=== PATIENT | female | born 1995 | race Caucasian/White ===

== ENCOUNTER 2018-08-25 16:28 | Inpatient (IN) ==
[2018-08-25 17:58] LABS: Basophils # (auto) 0.02 K/uL (0-0.2); Basophils % (auto) 0.2 %; Eosinophils % (auto) 1.2 %; Hematocrit (blood only) 42.1 % (37-47); Hemoglobin 14.5 g/dL (12.0-16.0); Immature Granulocytes # (auto) 0.01 K/uL (0.00-0.02); Immature Granulocytes % (auto) 0.1 %; Lymphocytes # (auto) 1.89 K/uL (1.2-3.4); Lymphocytes % (auto) 21.9 %; Mean Corpuscular Hgb Conc 34.4 g/dL (32-36); Mean Corpuscular Volume 92.5 fL (80-100); Mean Platelet Volume 9.7 fL (7.4-10.4); Monocytes # (auto) 0.72 K/uL (0.11-0.59); Monocytes % (auto) 8.4 %; Neutrophils # (auto) 5.88 K/uL (1.4-6.5); Neutrophils % (auto) 68.2 %; Platelet Count 169 K/uL (130-400); RDW Coefficient of Variation 12.9 % (11.5-14.5); RDW Standard Deviation 43.6 fL (36.4-46.3); Red Blood Count 4.55 M/uL (4.2-5.4); White Blood Count 8.62 K/uL (4.8-10.8)
[2018-08-25 18:30] LABS: Albumin Level 4.2 gm/dl (3.4-5.0); BUN Creatinine Ratio 9.9 (10-20); Calcium 9.1 mg/dl (8.5-10.1); Creatinine Clr Calc Pharmacy 91.5 ml/min; Est GFR (African American) 126.1; Est GFR (Non-African American) 108.8; Potassium 3.4 mmol/L (3.5-5.1)
[2018-08-25 18:35] LABS: Acetaminophen < 2 ug/ml (10-30); Salicylate < 1.7 mg/dl (2.8-20)
[2018-08-25 18:41] LABS: Albumin Globulin Ratio 1.2 (0.9-2); Bilirubin,Total 0.6 mg/dl (0.2-1); Globulin 3.6 gm/dl (2.5-4.0); Total Protein 7.8 gm/dl (6.4-8.2)
[2018-08-25] MEDS ORDERED: POTASSIUM CHLORIDE 20 MEQ TABCR PO STA (18:43)
[2018-08-25 19:26] LABS: Pregnancy Test, Urine Negative (Negative)
[2018-08-25 19:28] LABS: Appearance Urine Cloudy (Clear); Bacteria Urine Automated Negative (Negative); Bilirubin Urine Negative (Negative); Blood Urine Negative (Negative); Cast Urine Automated 0 /lpf (0-5); Color Urine Yellow; Glucose Urine UA Negative (Negative); Ketones Urine 1+ (Negative); Leukocyte Esterase Urine Negative (Negative); Nitrite Urine Negative (Negative); Protein Urine Negative (Negative); Specific Gravity Urine 1.011 (1.000-1.030); Urobilinogen Urine Negative (Negative); pH Urine 8.5 (4.5-7.5)
[2018-08-25 20:04] LABS: Amphetamines+Metham, Urine Neg (Neg); Barbiturates, Urine Neg (Neg); Benzodiazepine, Urine Neg (Neg); Cocaine, Urine Neg (Neg); MDMA (Ecstacy), Urine Neg (Neg); Methadone, Urine Neg (Neg); Opiate, Urine Neg (Neg); Phencyclidine, Urine Neg (Neg)
--- NOTE | 2018-08-25 20:18 | Emergency Department Note ---
Entered by Magnolia Carbajal acting as a scribe for History of Present Illness General Chief complaint: Mental Health Evaluation Stated complaint: SUICIDAL THOUGHTS Time Seen by Provider: 08/25/18 16:40 Source: patient History of Present Illness Onset (ago): unknown (this morning) Location: left and right (generalized) Pain Consistency: + constant Maximum Pain Intensity: 0 Quality: + other (SI) Associated symptoms: + denies other symptoms The patient is a 23 year old female who presents to the Emergency Room with complaints of increased suicidal thoughts that stared this morning. The patient states [facility] sent the patient to the ED. She states she is not taking any medications and has no past medical history. She reports she is currently going for her pHd. The patient states she does not want me to speak with her parents about her visit. Home Medications Home Medications Medication Instructions Recorded Confirmed Type No Known Home Medications 08/25/18 08/25/18 History Allergies Allergy/AdvReac Type Severity Reaction Status Date / Time No Known Allergies Allergy Unverified 08/25/18 17:39 Past Med/Surg History Medical History No significant medical problems Social History Preferred Language: [place] Communication Ability: Effective Visual Merchandising Associate Required: No Beliefs That Will Affect Care: None Feels Safe at Home: Yes Smoking Status: Never smoker Review of Systems See HPI for pertinent positives & negatives. and A total of 10 systems reviewed and were otherwise negative Physical Exam Vital Signs Vital Signs - 24 hr 08/25/18 16:35 08/25/18 18:29 Temperature 36.5 C Temperature Source Oral Sepsis Recent Fever Within 48 Hours No Sepsis New/Unexplained Change in Mental Status No Sepsis Action Taken by Nursing No Action Required Pulse Rate 95 H Pulse Rate [Finger] 90 Respiratory Rate 20 20 Blood Pressure 119/68 Blood Pressure [Left Arm] 119/67 Blood Pressure Mean 85 Blood Pressure Mean [Left Arm] 84 Pulse Oximetry 99 97 Oxygen Delivery Method Room Air Room Air GENERAL: Awake, alert, well-appearing, in no acute distress HENT: Normocephalic, atraumatic. Oropharynx unremarkable. EYES: Normal conjunctiva. Sclera non-icteric. NECK: Supple. No nuchal rigidity. FROM. No JVD. RESPIRATORY: Clear to auscultation. CARDIAC: Regular rate, normal rhythm. Extremities warm and well perfused. Pulses equal. ABDOMEN: Soft, non-distended. No tenderness to palpation. No rebound or guarding. No masses. RECTAL: Deferred. MUSCULOSKELETAL: Chest examination reveals no tenderness. The back is symmetrical on inspection without obvious abnormality. There is no CVA tenderness to palpation. No joint edema. LOWER EXTREMITIES: Calves are equal size bilaterally and non-tender. No edema. No discoloration. NEURO: Normal sensorium. No sensory or motor deficits noted. SKIN: No rash or jaundice noted. Superficial cuts to wrist and upper arm. Course 1649: Past medical records reviewed. The patient was evaluated in room A7. A complete history and physical exam was performed. 2030: Patient is medically cleared and will be evaluated by Fiona New. Administered Medications Discontinued Medications Potassium Chloride (Klor-Con M20) 40 meq PO NOW STA Stop: 08/25/18 18:44 Last Admin: 08/25/18 19:04 Dose: 40 meq Documented by: [id number] Medical Decision Making Differential Diagnosis Etiologies such as mood disorder, infection, hypoglycemia, electrolyte abnormalities, cardiac sources, intracerebral event, toxicologic, neurologic, as well as others were entertained. Medical Records Attestation: I reviewed the patient's medical records. Home Medications Current Medication List: was personally reviewed by me Laboratory Data Attestation: I reviewed the patient's lab results. Result diagrams: 08/25/18 17:44 08/25/18 17:44 Lab Results 08/25/18 08/25/18 08/25/18 Range/Units 17:44 17:44 17:44 WBC 8.62 (4.8-10.8) K/uL RBC 4.55 (4.2-5.4) M/uL Hgb 14.5 (12.0-16.0) g/dL Hct 42.1 (37-47) % MCV 92.5 (80-100) fL MCH 31.9 (25-34) pg MCHC 34.4 (32-36) g/dL RDW Std Deviation 43.6 (36.4-46.3) fL RDW Coeff of Lesly 12.9 (11.5-14.5) % Plt Count 169 (130-400) K/uL MPV 9.7 (7.4-10.4) fL Immature Gran % (Auto) 0.1 % Neut % (Auto) 68.2 % Lymph % (Auto) 21.9 % Cecil % (Auto) 8.4 % Eos % (Auto) 1.2 % Baso % (Auto) 0.2 % Immature Gran # (Auto) 0.01 (0.00-0.02) K/uL Neut # (Auto) 5.88 (1.4-6.5) K/uL Lymph # (Auto) 1.89 (1.2-3.4) K/uL Cecil # (Auto) 0.72 H (0.11-0.59) K/uL Eos # (Auto) 0.10 (0-0.5) K/uL Baso # (Auto) 0.02 (0-0.2) K/uL Sodium 137 (136-145) mmol/L Potassium 3.4 L (3.5-5.1) mmol/L Chloride 105 (98-107) mmol/L Carbon Dioxide 25 (21-32) mmol/L Anion Gap 7.0 (3-11) BUN 8 (7-18) mg/dl Creatinine 0.77 (0.6-1.2) mg/dl Est Cr Clr Drug Dosing 91.5 ml/min Est GFR ( Amer) 126.1 Est GFR (Non-Af Amer) 108.8 BUN/Creatinine Ratio 9.9 L (10-20) Glucose 78 (70-99) mg/dl Calcium 9.1 (8.5-10.1) mg/dl Total Bilirubin 0.6 (0.2-1) mg/dl AST 17 (15-37) U/L ALT 17 (12-78) U/L Alkaline Phosphatase 63 (45-117) U/L Total Protein 7.8 (6.4-8.2) gm/dl Albumin 4.2 (3.4-5.0) gm/dl Globulin 3.6 (2.5-4.0) gm/dl Albumin/Globulin Ratio 1.2 (0.9-2) TSH 1.540 (0.300-4.500) uIu/ml Urine Color Urine Appearance (Clear) Urine pH (4.5-7.5) Ur Specific [place] (1.000-1.030) Urine Protein (Negative) Urine Glucose (UA) (Negative) Urine Ketones (Negative) Urine Blood (Negative) Urine Nitrite (Negative) Urine Bilirubin (Negative) Urine Urobilinogen (Negative) Ur Leukocyte Esterase (Negative) Urine WBC (Auto) (0-5) /hpf Urine RBC (Auto) (0-4) /hpf U Hyaline Cast (Auto) (0-5) /lpf U Epithel Cells (Auto) (0-5) /lpf Urine Bacteria (Auto) (Negative) Urine Test (Negative) Salicylates < 1.7 L (2.8-20) mg/dl Urine Opiates Screen (Neg) Ur Methadone, Qual (Neg) Acetaminophen < 2 L (10-30) ug/ml Urine Barbiturates (Neg) Ur Phencyclidine (PCP) (Neg) U Amphetamin/Meth Scrn (Neg) MDMA (Ecstasy) Screen (Neg) U Benzodiazepines Scrn (Neg) Ur Cocaine Metabolite (Neg) U Marijuana (THC) Screen (Neg) Ethyl Alcohol mg/dL (0-3) mg/dl 08/25/18 08/25/18 08/25/18 Range/Units 17:44 18:50 18:50 WBC (4.8-10.8) K/uL RBC (4.2-5.4) M/uL Hgb (12.0-16.0) g/dL Hct (37-47) % MCV (80-100) fL MCH (25-34) pg MCHC (32-36) g/dL RDW Std Deviation (36.4-46.3) fL RDW Coeff of Lesly (11.5-14.5) % Plt Count (130-400) K/uL MPV (7.4-10.4) fL Immature Gran % (Auto) % Neut % (Auto) % Lymph % (Auto) % Cecil % (Auto) % Eos % (Auto) % Baso % (Auto) % Immature Gran # (Auto) (0.00-0.02) K/uL Neut # (Auto) (1.4-6.5) K/uL Lymph # (Auto) (1.2-3.4) K/uL Cecil # (Auto) (0.11-0.59) K/uL Eos # (Auto) (0-0.5) K/uL Baso # (Auto) (0-0.2) K/uL Sodium (136-145) mmol/L Potassium (3.5-5.1) mmol/L Chloride (98-107) mmol/L Carbon Dioxide (21-32) mmol/L Anion Gap (3-11) BUN (7-18) mg/dl Creatinine (0.6-1.2) mg/dl Est Cr Clr Drug Dosing ml/min Est GFR ( Amer) Est GFR (Non-Af Amer) BUN/Creatinine Ratio (10-20) Glucose (70-99) mg/dl Calcium (8.5-10.1) mg/dl Total Bilirubin (0.2-1) mg/dl AST (15-37) U/L ALT (12-78) U/L Alkaline Phosphatase (45-117) U/L Total Protein (6.4-8.2) gm/dl Albumin (3.4-5.0) gm/dl Globulin (2.5-4.0) gm/dl Albumin/Globulin Ratio (0.9-2) TSH (0.300-4.500) uIu/ml Urine Color Urine Appearance (Clear) Urine pH (4.5-7.5) Ur Specific [place] (1.000-1.030) Urine Protein (Negative) Urine Glucose (UA) (Negative) Urine Ketones (Negative) Urine Blood (Negative) Urine Nitrite (Negative) Urine Bilirubin (Negative) Urine Urobilinogen (Negative) Ur Leukocyte Esterase (Negative) Urine WBC (Auto) (0-5) /hpf Urine RBC (Auto) (0-4) /hpf U Hyaline Cast (Auto) (0-5) /lpf U Epithel Cells (Auto) (0-5) /lpf Urine Bacteria (Auto) (Negative) Urine Test Negative (Negative) Salicylates (2.8-20) mg/dl Urine Opiates Screen Neg (Neg) Ur Methadone, Qual Neg (Neg) Acetaminophen (10-30) ug/ml Urine Barbiturates Neg (Neg) Ur Phencyclidine (PCP) Neg (Neg) U Amphetamin/Meth Scrn Neg (Neg) MDMA (Ecstasy) Screen Neg (Neg) U Benzodiazepines Scrn Neg (Neg) Ur Cocaine Metabolite Neg (Neg) U Marijuana (THC) Screen Neg (Neg) Ethyl Alcohol mg/dL < 3.0 (0-3) mg/dl 05/15/19 Range/Units 18:50 WBC (4.8-10.8) K/uL RBC (4.2-5.4) M/uL Hgb (12.0-16.0) g/dL Hct (37-47) % MCV (80-100) fL MCH (25-34) pg MCHC (32-36) g/dL RDW Std Deviation (36.4-46.3) fL RDW Coeff of Lesly (11.5-14.5) % Plt Count (130-400) K/uL MPV (7.4-10.4) fL Immature Gran % (Auto) % Neut % (Auto) % Lymph % (Auto) % Cecil % (Auto) % Eos % (Auto) % Baso % (Auto) % Immature Gran # (Auto) (0.00-0.02) K/uL Neut # (Auto) (1.4-6.5) K/uL Lymph # (Auto) (1.2-3.4) K/uL Cecil # (Auto) (0.11-0.59) K/uL Eos # (Auto) (0-0.5) K/uL Baso # (Auto) (0-0.2) K/uL Sodium (136-145) mmol/L Potassium (3.5-5.1) mmol/L Chloride (98-107) mmol/L Carbon Dioxide (21-32) mmol/L Anion Gap (3-11) BUN (7-18) mg/dl Creatinine (0.6-1.2) mg/dl Est Cr Clr Drug Dosing ml/min Est GFR ( Amer) Est GFR (Non-Af Amer) BUN/Creatinine Ratio (10-20) Glucose (70-99) mg/dl Calcium (8.5-10.1) mg/dl Total Bilirubin (0.2-1) mg/dl AST (15-37) U/L ALT (12-78) U/L Alkaline Phosphatase (45-117) U/L Total Protein (6.4-8.2) gm/dl Albumin (3.4-5.0) gm/dl Globulin (2.5-4.0) gm/dl Albumin/Globulin Ratio (0.9-2) TSH (0.300-4.500) uIu/ml Urine Color Yellow Urine Appearance Cloudy A (Clear) Urine pH 8.5 H (4.5-7.5) Ur Specific [place] 1.011 (1.000-1.030) Urine Protein Negative (Negative) Urine Glucose (UA) Negative (Negative) Urine Ketones 1+ H (Negative) Urine Blood Negative (Negative) Urine Nitrite Negative (Negative) Urine Bilirubin Negative (Negative) Urine Urobilinogen Negative (Negative) Ur Leukocyte Esterase Negative (Negative) Urine WBC (Auto) 1-5 (0-5) /hpf Urine RBC (Auto) 5-10 H (0-4) /hpf U Hyaline Cast (Auto) 0 (0-5) /lpf U Epithel Cells (Auto) 10-20 H (0-5) /lpf Urine Bacteria (Auto) Negative (Negative) Urine Test (Negative) Salicylates (2.8-20) mg/dl Urine Opiates Screen (Neg) Ur Methadone, Qual (Neg) Acetaminophen (10-30) ug/ml Urine Barbiturates (Neg) Ur Phencyclidine (PCP) (Neg) U Amphetamin/Meth Scrn (Neg) MDMA (Ecstasy) Screen (Neg) U Benzodiazepines Scrn (Neg) Ur Cocaine Metabolite (Neg) U Marijuana (THC) Screen (Neg) Ethyl Alcohol mg/dL (0-3) mg/dl Blood Pressure Blood Pressure Findings: Normal blood pressure Blood Pressure Disposition: did not require urgent referral MDM Narrative This is a 23-year-old female who presents emergency department over concerns of C suicidal ideation. Patient has superficial cuts to her left upper arm. None of these need to be sutured. She does not have any medical history. She is medically cleared by me. She is afebrile and not tachycardic. She is also not has a normal CBC normal renal profile. Her urinalysis is clear. Based on these findings she was independently evaluated by case management and was subsequently admitted to 3 . Impression & Plan Mood disorder Discharge Plan Visit Data *Final* Discharge Date/Time: 08/25/18 21:23 Chief Complaint: Mental Health Evaluation Stated Complaint: SUICIDAL THOUGHTS ED Provider: Marquise Davalos Discharge Problem: Mood disorder Patient Disposition: Admitted As Inpatient Discharge Instructions Interventions: ED Discharge Assessment Last Done: 08/25/18 21:23 The scribe's documentation has been prepared under my direction and personally reviewed by me in its entirety. I confirm that the note above accurately reflects all work, treatment, procedures, and medical decision making performed by me.
[2018-08-25] MEDS ORDERED: ALUMINUM/MAGNESIUM SUSP 30 ML UDC PO PRN (20:41)
[2018-08-25] MEDS ORDERED: MAGNESIUM HYDROXIDE SUSP 30 ML UDC PO PRN (20:41)
[2018-08-25] MEDS ORDERED: ACETAMINOPHEN 325 MG TAB PO PRN (20:41)
[2018-08-25] MEDS ORDERED: SODIUM CHLORIDE 0.65% NA SOLN 45 ML (OCEAN) PRN (20:41)
[2018-08-25] MEDS ORDERED: BISMUTH SUBSALICYLATE PER ML OMNICELL CHARGE PO PRN (20:41)
--- NOTE | 2018-08-26 10:05 | History & Physical ---
Date of Service August 26, 2018 Impression / Recommendations Impression 23-year-old female admitted voluntarily for inpatient psychiatric treatment due to reports of worsening depressive symptoms and increased suicidal thoughts in the last 2-3 weeks. Significant stressors include: Finals week, significant time spent completing lab duties, several reportedly unsuccessful experiments, risk of losing funding for her program, and over all difficulty adjusting to the University. Patient's depressive symptoms have been especially persistent since May, and frequently change with situations. Differential diagnoses include: adjustment disorder with mixed depressed mood and anxiety (however, mood changes began prior to the reported risk of losing funding), major depressive disorder, dysthymic disorder, or other unspecified depressive disorder. Her anxiety symptoms and observed behavior suggest sufficient criteria for social anxiety disorder. Reviewed recommendations for outpatient psychotherapy, and for initiation of an antidepressant medication. Risks and benefits of SSRIs were discussed, and patient was provided with information on sertraline, fluoxetine, and escitalopram at her request. Followed up with patient later in the day; patient stating she would like additional time to look over her options. She was agreeable to reviewing in the morning and starting her medication choice at that time. Pt will be expected to attend group and recreational therapies during her admission. At this time, she is not interested in informing her family of her admission. Will encourage contact with outpatient supports, and patient admits to not having close connections in this area. At this time, inpatient psychiatric treatment is medically necessary due to her reports of worsening depressive symptoms, increased suicidality, very limited outpatient supports in the area, and the fact that she is not established with any outpatient providers. Several of her stressors related to work and her academics will likely be ongoing after admission, therefore we recommend a robust aftercare and safety plan to help her cope with these situations. Patient is considered to be at high risk of harm to self if she is discharged prematurely. Dr. Merary Das was directly involved in review and discussion of the patient's case and participated in medical decision making regarding treatment recommendations. (1) Suicidal ideation: 08/26 - Admitted to a locked inpatient behavioral health unit, on q15 minute safety checks - Encourage medication initiation/adjustments as indicated - Encourage participation in group and recreational therapies - Gather collateral information from outpatient providers - Suggest family meeting to involve outpatient supports in safety planning - Arrange appropriate aftercare (2) Depression: 08/26 - Depression, NOS: Differential includes - adjustment disorder with mixed depressed mood and anxiety, major depressive disorder, dysthymic disorder, or other mood disorder - Reviewed recommendation for initiation of an SSRI, providing patient education information - Pt is agreeable to review, but would like additional time - planning to start medication in the morning if she remains agreeable Depression Type: unspecified Qualified Code(s): F32.9 - Major depressive disorder, single episode, unspecified (3) Social anxiety disorder: 08/26 - Reported symptoms and level of anxiety meet criteria for social anxiety disorder - SSRI as above - Assist with development of healthy and effective coping strategies (4) Self-injurious behavior: 08/26 - Several superficial cuts to left upper arm and left wrist - none requiring suturing in the ED. Keep areas clean and dry, can order antibiotic ointment if necessary, observe healing process during admission - Assist patient with the development of healthy and effective coping strategies to discourage giving in to self-harm urges Inventory Assets Strengths: intelligence, willingness for medications + therapy Needs: effective coping strategies, medications to target anxiety and depression, increased outpatient supports Risk Factors Assessment Male: No : Yes Do You Have Access To A Gun?: No Health Problems: No Mental Health Diagnoses: Yes Substance Use Disorders: No Previous Attempt: No Family History of Suicide: No Previous Psychiatric Hospitalization: No Hopelessness: Yes Smoker: No Protective Factors Assessment Islam Beliefs: Yes : No Responsible for Young Children: No Employed: Yes Stable Relationships: No Supportive Family: Yes (but living in [place] ) Psychiatric History Identifying Data KESHIA DOMINGUEZ is a 23-year-old F who currently lives in [place], currently working on her Ph.D. Pt has no previously reported psychiatric history, and was admitted on 08/25/18 20:41 on a 201 voluntary commitment for suicidal thoughts. Pt was referred by [facility] for mental health evaluation. Information is gathered from ED documentation and the patient herself, and is considered to be reliable. Chief Complaint "...[45 second pause]...I had a meeting at [facility]...for suicidal thoughts...and self-harm." History of Present Illness Keshia Dominguez (Katie) is a 23-year-old female admitted voluntarily for inpatient psychiatric treatment. 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 She was brought to the ED by police after referral from [facility]. Patient had presented for a scheduled therapy appointment, and had disclosed suicidal thoughts and self-harm behavior. Patient was assessed in the emergency department and inpatient psychiatric treatment was ultimately recommended. 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 Patient admits to this provider that she is concerned that she is not living up to others' expectations of her. 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 Patient admits the desire to end her life has been present for the last 2-3 weeks. She reports a specific plan - "severing a major artery was a consideration." Patient states that 08/22/2018 was a particularly difficult day; however, "I was able to push myself to go to work this week, and make sure I got to that appointment at [facility] yesterday." Patient admits to significant difficulty with interpersonal relationships. She states she is always had difficulty interacting with others in social settings, and has trouble making friends. Patient states "communication is hard for me, it is extravagantly exhausting." The patient describes herself as "reclusive." Patient reports a great deal of anxiety when it comes to academic presentations, interacting with others and lab, and simply being the presence of other individuals. Patient states, "humans are social creatures by nature and that social interaction is so difficult for me." Patient states that there are times that she avoids leaving her apartment, states she figured out when the grocery store is most quiet, and generally her only social interaction is "Mass on Sundays." Patient does not report a clear history of panic attacks in the past. She does report depressive symptoms of low mood, reporting more bad days than good days during the week. She admits to daily crying spells generally lasting 2 hours, increased desire to retreat to bed, decreased appetite, low energy, anhedonia, difficulty concentrating, hopelessness, and recent suicidal ideation. Patient states, "part of me feels that the major chore to keep living, but the other part of me wants to fight to stay and keep going." Patient denies any previous medication trials to target her anxiety or mood. She does admit to a brief period of counseling just prior to graduation from her undergraduate studies, stating the primary focus of this counseling was on her self-harm behavior which she reports was infrequent at the time. Patient does admit that she would be interested in considering medications, and is willing to pursue outpatient therapy as well. Pt denies HI, A/V hallucinations, paranoia, florencio/hypomania, other symptoms more suggestive of a bipolar presentation, OCD, PTSD, eating disorder, and other specific psychiatric symptoms. Past Psychiatric History Previous Psych History: Previous psychiatric treatment includes only a brief per iod of counseling in spring 2017 to address self-harm which was infrequent at the time Current Psychiatric Diagnosis: Denies Outpatient Services: None presently Previous Psych Admissions: None Do You Have Access To A Gun?: No History of Previous Suicide Attempt: No Describe Attempts in the Past: Wrote note and tried to slit wrist on Thursday Past Medication Trials: None Past Head Trauma/Neuro History History of Concussion/Seizure: No Allergies Allergy/AdvReac Type Severity Reaction Status Date / Time No Known Allergies Allergy Unverified 08/25/18 17:39 Home Medications Home Medications Medication Instructions Recorded Confirmed Type No Known Home Medications 08/25/18 08/25/18 History Family History Family History of: Depression and Anxiety Family Mental Health History Comment: Siblings and mother Alcohol History Hx of Alcohol Use Over the Past 12 Months: No AUDIT Total Score: 0 Smoking Use Have You Smoked or Used Tobacco Products in the Last 30 Days: No Smoking Status: Never smoker Substance History Hx of Prescription Med Misuse Over the Past 12 Months: No Hx of Over the Counter Med Misuse Over the Past 12 Months: No Hx of Inhalent Misuse Over the Past 12 Months: No Hx of Organic Substance Use Over the Past 12 Months: No Hx of Illegal Substances/Street Drug Use Over Past 12 Months: No Problems as a Result of Past Substance Use: None Identified Personal History Living Arrangements: Apartment (Alone) Childhood: Patient reports she was born in [place] and spent 15 years growing up in [place]. Patient states she came from a supportive safe home, raised by both parents. She has 1 brother 5 years older, and is 1 of a set of triplets -2 additional brothers. Patient states that all got along well she believes she had a normal childhood. 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, actively tutors on the side) Marital Status: Single Beliefs That Will Affect Care: None Current Legal Problems: No Hx Traumatic Life Events: No Patient History Medical History No significant medical problems Social History Preferred Language: Grenadian Communication Ability: Effective Production Hardener Required: No Beliefs That Will Affect Care: None Feels Safe at Home: Yes Smoking Status: Never smoker Review of Systems Review of Systems: Constitutional: reports fatigue for the past 1-2 weeks Cardiovascular: denied Respiratory: denied Gastrointestinal: reports decreased appetite Neurological: reports difficulty concentrating and occasional lightheadedness Psychiatric: denies symptoms other than stated above Total of at least 10 systems reviewed, pertinent positives as above and in HPI. Physical Exam Psychiatric: Orientation: alert, oriented x 3 and cooperative (Though very hesitant and shy) Apperance: appropriately groomed and appeared stated age Thin-appearing female appearing to be very anxious, but in no acute distress. Wearing a long turtle-neck, ankle-length skirt, and glasses. Hair neatly pulled back in a long braid. Level of hygiene and hydration appears to be adequate. Eye Contact: + poor eye contact Patient frequently avoids eye contact, actually spending most of the interview looking away from this provider with her eyes closed Motor Behavior: steady gait and station and no abnormal motor movements Appearing tense and constricted Speech is calculated and hesitant, extremely soft tone Affect: + depressed affect, + anxious affect (Highly) and + tearful affect Mood: + depressed mood and + anxious mood "Up and down, it varies with situations" Thought Process: goal directed thought process and clear/coherent thought process Thought Content: reality based without delusions Suicidal Thoughts: + reports suicidal thoughts, + reports suicidal plan (Reports consideration of "severing the major artery") and + reports suicidal intent Homicidal Thoughts: denies homicidal thoughts Hallucinations: no auditory hallucinations and no visual hallucinations Cognition: recent memory grossly intact, remote memory grossly intact, attention grossly intact and language grossly intact Estimated Intelligence: consistent with education level and + above average estimated intelligence Insight: + fair insight Judgement: + limited judgement Vital Signs (Past 24 Hours): Last Vital Signs Temp 36.8 C 08/26/18 06:00 Pulse 88 08/26/18 06:00 Resp 16 08/26/18 06:00 BP 107/68 08/26/18 06:00 Pulse Ox 97 08/25/18 18:29 Exam Statement: A physical exam was performed in the ER prior to admission to the unit by Dr. Marquise Davalos MD. I accept that physical as correct/medical clearance for the inpatient physical exam. Results & Data Laboratory Results Laboratory Results - last 24 hr 08/25/18 08/25/18 08/25/18 17:44 17:44 17:44 WBC 8.62 RBC 4.55 Hgb 14.5 Hct 42.1 MCV 92.5 MCH 31.9 MCHC 34.4 RDW Std Deviation 43.6 RDW Coeff of Lesly 12.9 Plt Count 169 MPV 9.7 Immature Gran % (Auto) 0.1 Neut % (Auto) 68.2 Lymph % (Auto) 21.9 [place] % (Auto) 8.4 Eos % (Auto) 1.2 Baso % (Auto) 0.2 Immature Gran # (Auto) 0.01 Neut # (Auto) 5.88 Lymph # (Auto) 1.89 [place] # (Auto) 0.72 H Eos # (Auto) 0.10 Baso # (Auto) 0.02 Sodium 137 Potassium 3.4 L Chloride 105 Carbon Dioxide 25 Anion Gap 7.0 BUN 8 Creatinine 0.77 Est Cr Clr Drug Dosing 91.5 Est GFR ( Amer) 126.1 Est GFR (Non-Af Amer) 108.8 BUN/Creatinine Ratio 9.9 L Glucose 78 Calcium 9.1 Total Bilirubin 0.6 AST 17 ALT 17 Alkaline Phosphatase 63 Total Protein 7.8 Albumin 4.2 Globulin 3.6 Albumin/Globulin Ratio 1.2 TSH 1.540 Urine Color Urine Appearance Urine pH Ur Specific [place] Urine Protein Urine Glucose (UA) Urine Ketones Urine Blood Urine Nitrite Urine Bilirubin Urine Urobilinogen Ur Leukocyte Esterase Urine WBC (Auto) Urine RBC (Auto) U Hyaline Cast (Auto) U Epithel Cells (Auto) Urine Bacteria (Auto) Urine Test Salicylates < 1.7 L Urine Opiates Screen Ur Methadone, Qual Acetaminophen < 2 L Urine Barbiturates Ur Phencyclidine (PCP) U Amphetamin/Meth Scrn MDMA (Ecstasy) Screen U Benzodiazepines Scrn Ur Cocaine Metabolite U Marijuana (THC) Screen Ethyl Alcohol mg/dL 08/25/18 08/25/18 08/25/18 17:44 18:50 18:50 WBC RBC Hgb Hct MCV MCH MCHC RDW Std Deviation RDW Coeff of Lesly Plt Count MPV Immature Gran % (Auto) Neut % (Auto) Lymph % (Auto) [place] % (Auto) Eos % (Auto) Baso % (Auto) Immature Gran # (Auto) Neut # (Auto) Lymph # (Auto) [place] # (Auto) Eos # (Auto) Baso # (Auto) Sodium Potassium Chloride Carbon Dioxide Anion Gap BUN Creatinine Est Cr Clr Drug Dosing Est GFR ( Amer) Est GFR (Non-Af Amer) BUN/Creatinine Ratio Glucose Calcium Total Bilirubin AST ALT Alkaline Phosphatase Total Protein Albumin Globulin Albumin/Globulin Ratio TSH Urine Color Urine Appearance Urine pH Ur Specific [place] Urine Protein Urine Glucose (UA) Urine Ketones Urine Blood Urine Nitrite Urine Bilirubin Urine Urobilinogen Ur Leukocyte Esterase Urine WBC (Auto) Urine RBC (Auto) U Hyaline Cast (Auto) U Epithel Cells (Auto) Urine Bacteria (Auto) Urine Test Negative Salicylates Urine Opiates Screen Neg Ur Methadone, Qual Neg Acetaminophen Urine Barbiturates Neg Ur Phencyclidine (PCP) Neg U Amphetamin/Meth Scrn Neg MDMA (Ecstasy) Screen Neg U Benzodiazepines Scrn Neg Ur Cocaine Metabolite Neg U Marijuana (THC) Screen Neg Ethyl Alcohol mg/dL < 3.0 08/25/18 18:50 WBC RBC Hgb Hct MCV MCH MCHC RDW Std Deviation RDW Coeff of Lesly Plt Count MPV Immature Gran % (Auto) Neut % (Auto) Lymph % (Auto) [place] % (Auto) Eos % (Auto) Baso % (Auto) Immature Gran # (Auto) Neut # (Auto) Lymph # (Auto) [place] # (Auto) Eos # (Auto) Baso # (Auto) Sodium Potassium Chloride Carbon Dioxide Anion Gap BUN Creatinine Est Cr Clr Drug Dosing Est GFR ( Amer) Est GFR (Non-Af Amer) BUN/Creatinine Ratio Glucose Calcium Total Bilirubin AST ALT Alkaline Phosphatase Total Protein Albumin Globulin Albumin/Globulin Ratio TSH Urine Color Yellow Urine Appearance Cloudy A Urine pH 8.5 H Ur Specific [place] 1.011 Urine Protein Negative Urine Glucose (UA) Negative Urine Ketones 1+ H Urine Blood Negative Urine Nitrite Negative Urine Bilirubin Negative Urine Urobilinogen Negative Ur Leukocyte Esterase Negative Urine WBC (Auto) 1-5 Urine RBC (Auto) 5-10 H U Hyaline Cast (Auto) 0 U Epithel Cells (Auto) 10-20 H Urine Bacteria (Auto) Negative Urine Test Salicylates Urine Opiates Screen Ur Methadone, Qual Acetaminophen Urine Barbiturates Ur Phencyclidine (PCP) U Amphetamin/Meth Scrn MDMA (Ecstasy) Screen U Benzodiazepines Scrn Ur Cocaine Metabolite U Marijuana (THC) Screen Ethyl Alcohol mg/dL Current Inpatient Medications Current Inpatient Medications: Current Inpatient Medications Acetaminophen (Tylenol) 650 mg PO Q4H PRN PRN Reason: Headache or Minor Fever Stop: 09/24/18 20:40 Al Hydrox/Mg Hydrox/Simethicone (Maalox) 30 ml PO Q4H PRN PRN Reason: GI Upset Stop: 09/24/18 20:40 Bismuth Subsalicylate (Kaopectate) 15 ml PO PRN PRN PRN Reason: Loose Stool Stop: 09/24/18 20:40 Hydroxyzine HCl (Vistaril) 50 mg PO HSZ PRN PRN Reason: Insomnia Stop: 09/24/18 20:40 Hydroxyzine HCl (Vistaril) 25 mg PO Q4H PRN PRN Reason: Anxiety Stop: 09/24/18 20:40 Magnesium Hydroxide (Milk Of Magnesia) 30 ml PO DAILY PRN PRN Reason: Constipation Stop: 09/24/18 20:40 Sodium Chloride ([place] Nasal) 1 - 2 sprays NA PRN PRN PRN Reason: Nasal Dryness/Congestion Stop: 09/24/18 20:40 CPT Code CPT Code Initial Hospital Care: [id number]
--- NOTE | 2018-08-27 12:02 | Psychiatric Progress Note ---
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 Also, the patient tends to be quite reserved to the point of being diffident at baseline (per the patient). Whether a function of her depression, or part of the patient's personality structure, she fr equently makes self depreciating comments and seems to internalize failures that may better be attributed to other people. For example, she blames her difficulty "properly reading" her advisor for the fact that he seems not to be available much of the time and has apparently offered little in the way of academic, let alone emotional, support. I am also struck by the degree to which the patient's tendency to be highly analytical crosses into the realm of obsessive thinking and a dedication to being overly concerned with rules, lists, and a sense of order. Within the context of suicidal intent, which the patient says reached its height last Thursday, and intent that persisted into work-week, the patient felt compelled to go to work and be on time on Thursday, even under of the above referenced circumstances, because, she puts it, "that is what is expected. I am supposed to keep working, so I did." She also indicates that she has used self cutting as a way of managing obsessive thinking and ruminations, and often becomes intellectually "paralyzed" by a tendency to over think and over analyze even routine decisions. 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 However, at this point, it seems clear that her tendency to over think and over analyze and over plan is significantly interfering with her ability to function. For that reason, I am recommending a medication that is known to help with depression, anxiety and obsessive thinking, namely sertraline. The patient is below ideal body weight and I will recommend we start at a low dose and titrate fairly quickly, as tolerated. (1) Suicidal ideation: 08/26 - Admitted to a locked inpatient behavioral health unit, on q15 minute safety checks - Encourage medication initiation/adjustments as indicated - Encourage participation in group and recreational therapies - Gather collateral information from outpatient providers - Suggest family meeting to involve outpatient supports in safety planning - Arrange appropriate aftercare 08/27 -The patient tells me that she continues to have continued thoughts of suicide, but today does not feel that she has any suicidal intentat least in the hospital. She recognizes that she is facing many of the same stressors that helps precipitated the current admission when she leaves the hospital, and she also worries that these stressors may have become greater because she has not been able to do research while hospitalized. -We will again sertraline 25 mg today, and increase as tolerated to 50 mg tomorrow, and then titrate further as tolerated. -The patient is being encouraged to work assiduously on a safety plan. (2) Depression: 08/26 - Depression, NOS: Differential includes - adjustment disorder with mixed depressed mood and anxiety, major depressive disorder, dysthymic disorder, or other mood disorder - Reviewed recommendation for initiation of an SSRI, providing patient education information - Pt is agreeable to review, but would like additional time - planning to start medication in the morning if she remains agreeable 08/27 -I believe the patient's correct diagnosis is major depressive disorder, severe, recurrent, without psychotic features. She has had at least one other episode of major depression, and certainly at this point meets criteria for major depression. -After reading about him analyzing the various material risks and anticipated benefits of various antidepressant medications she developed a rank ordered list of selective serotonin reuptake inhibitors that she would prefer to take. Sertraline was her second choice, but I convince the patient that I would recommend sertraline because of its demonstrated benefit for depression, anxiety, social phobia, and obsessive compulsive disorder. While I am not convinced the patient meets criteria for OCD, she certainly has a pattern of obsessively thinking and analyzing, to the degree that it interferes with her functioning in a number of spheres. -The plan is to begin sertraline 25 mg today, and increase to 50 mg tomorrow and then titrate further as tolerated. - (3) Social anxiety disorder: 08/26 - Reported symptoms and level of anxiety meet criteria for social anxiety disorder - SSRI as above - Assist with development of healthy and effective coping strategies. 08/27 -At least currently, the patient is almost painfully shy. Certainly, this reality may interfere with her ability to develop an adequate support network here in the community, and she seems reluctant to "burden" her family with her problems, even though she describes her family as being "close" and's "supportive." -We will be encouraging the patient to engage in the milieu, and work in group therapy and individual therapy to practice social interactions and better learning the value of obtaining support and encouragement for others. -We are beginning sertraline, as above. Hopefully this will also assist the patient in her effort to overcome social phobia. (4) Self-injurious behavior: 08/26 - Several superficial cuts to left upper arm and left wrist - none requiring suturing in the ED. Keep areas clean and dry, can order antibiotic ointment if necessary, observe healing process during admission - Assist patient with the development of healthy and effective coping strategies to discourage giving in to self-harm urges. 08/27 -Today, the patient indicates that she has significant shame associated with her intentional self-injurious behaviors (superficial self cutting). She acknowledges that self cutting helps block her obsessive thinking and relieves tension, but she also notes that this only afford her temporary relief and, furthermore, is contrary to her anglican beliefs as a Latter Day. Within this context, the patient says that she is committed to not engage in behavior, at least for the foreseeable future. Inventory Assets Strengths: intelligence, willingness for medications + therapy Needs: effective coping strategies, medications to target anxiety and depression, increased outpatient supports Risk Factors Assessment Male: No : Yes Do You Have Access To A Gun?: No Health Problems: No Mental Health Diagnoses: Yes Substance Use Disorders: No Previous Attempt: No Family History of Suicide: No Previous Psychiatric Hospitalization: No Hopelessness: Yes Smoker: No Protective Factors Assessment Restoration Beliefs: Yes : No Responsible for Young Children: No Employed: Yes Stable Relationships: No Supportive Family: Yes (but living in [place] ) Interval History Chief Complaint "Depressed. Discouraged." Review of Systems Sleep Information Total Hours of Sleep: 6.75 Meal Information Percent Meal Consumed - Breakfast: 100 Percent Meal Consumed - Lunch: 75 Percent Meal Consumed - Dinner: 100 Subjective Subjective Patient was seen & assessed and interval progress reviewed with Treatment Team. I met individually with the patient in order to assess her current mental status, evaluate her response to treatment, make any necessary changes in the patient's treatment regimen, and address issues and concerns that may arise. At my request, the patient initially focused on the stressors that may have precipitated the admission. 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 She tells me that she has no publishable data because none of the research is complete enough to publish either positive or negative findings. Within this context, the patient frequently blames herself for the situation. For example, when I asked her who in the program is available to provide her with support, she says, "I have an advisor. I think the problem is that I have not been able to read him properly, and I have not done a good job of communicating to him what I need." (On further questioning, the patient mentions, in passing, that the advisor is often out of the office and unavailable.) Her primary interest is in teaching, but she notes that in order to obtain an academic appointment in her field that she will need to have worked in research and be published. The patient also notes that she is working long hours, has little time for leisure activities, feels tired and anergic "almost all the time," and has been finding herself "dragging through the day" on a daily basis. She has trouble identifying when she first became aware that she was depressed, but feels that her depressed mood has been worsening over the course of the past 8 or 9 months. 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 She acknowledges that she had both suicidal plans and suicidal intent prior to the admission. Specifically, she tells me in some detail how she might use the "technologically inferior" gas stove in her apartment to asphyxiate herself, and when I pointed out that that could harm neighbors in her apartment building, she explained that she had "already thought about that. My apartment is not immediately adjacent to anyone else's apartment." The patient also says that she has been thinking of exsanguinating by cutting an artery, but notes that she realizes that large arteries are usually very deep and she is not sure that she would have the ability to "go that deep." Other thoughts are of drowning herself. She had not disclosed these thoughts to anyone, including her family, until she w evaluated in the emergency room immediately prior to the admission. She reports that there have been other times in her life where she has considered suicide, but and none of these other instances have the thoughts been as strong and is closely coupled with actual suicidal intent. Further, there is a history of intentional self-injurious behaviors. The patient reports that she periodically cuts herself on the arm (pointing to her left arm) with a pocket knife to relieve tension. The patient tells me that she considers herself to be a fairly strictly adherent Latter Day, and intentional self injur of any sort is contrary to her anglican and moral beliefs, and within this context she is struggling to avoid acting on the impulses. There is also clear that the patient is socially isolated. She tells me that she has lived in [place] since last November (2017) and has no friends. She also tells me that her family is "close," but that she has not been sharing her psychiatric symptoms with her family and has not talked to any great extent about her situational difficulties. We had discussed antidepressant treatment options with the patient yesterday, and she tells me that she poured through data sets concerning the various antidepressant medications and had ranked her preferences based on her findings. I explained that because responses to medication and different people can be quite different, a general review of potential side effects is not necessarily any guarantee that side effects will or will not present themselves, based on genetic makeup and other factors. Today, the patient told me that she would agree to try the medication that I recommend, and I recommended sertraline and explained that I think that it would help with her anxiety, her depression, and her tendency to be excessively and obsessively focused. In addition to depressed mood and suicidal thoughts, the patient endorses anergia, anhedonia, apathy, hypersomnia, as well as feelings of hopelessness, helplessness and worthlessness. Physical Exam Psychiatric Orientation: oriented x 3 Apperance: appropriately groomed Eye Contact: + poor eye contact Motor Behavior: + tremor The patient rocks in her chair and engages in manual self soothing behaviors. The patient's speech is quite soft, but spontaneous. She speaks at length and response to questions. Affect: + depressed affect Mood: + depressed mood Thought Process: linear/logical thought process The patient's thought process these tend to be marked by a tendency to be over inclusive and highly analytical Thought Content: + preoccupation and reality based without delusions The patient reports ongoing suicidal thoughts, but without any current plan or i ntent, at least during the hospitalization. Homicidal Thoughts: denies homicidal thoughts Hallucinations: no auditory hallucinations Cognition: recent memory grossly intact, remote memory grossly intact, attention grossly intact and language grossly intact Estimated Intelligence: + above average estimated intelligence Insight: + fair insight Judgement: + fair judgement Vital Signs (Past 24 Hours) Last Vital Signs Temp 36.7 C 08/27/18 06:00 Pulse 105 H 08/27/18 06:00 Resp 16 08/27/18 06:00 BP 105/72 08/27/18 06:00 Pulse Ox 97 08/25/18 18:29 Results & Data Current Inpatient Medications Current Inpatient Medications: Current Inpatient Medications Acetaminophen (Tylenol) 650 mg PO Q4H PRN PRN Reason: Headache or Minor Fever Stop: 09/24/18 20:40 Al Hydrox/Mg Hydrox/Simethicone (Maalox) 30 ml PO Q4H PRN PRN Reason: GI Upset Stop: 09/24/18 20:40 Bismuth Subsalicylate (Kaopectate) 15 ml PO PRN PRN PRN Reason: Loose Stool Stop: 09/24/18 20:40 Hydroxyzine HCl (Vistaril) 50 mg PO HSZ PRN PRN Reason: Insomnia Stop: 09/24/18 20:40 Hydroxyzine HCl (Vistaril) 25 mg PO Q4H PRN PRN Reason: Anxiety Stop: 09/24/18 20:40 Magnesium Hydroxide (Milk Of Magnesia) 30 ml PO DAILY PRN PRN Reason: Constipation Stop: 09/24/18 20:40 Sodium Chloride (Craven Nasal) 1 - 2 sprays NA PRN PRN PRN Reason: Nasal Dryness/Congestion Stop: 09/24/18 20:40 Post Discharge Appointments Primary Care Physician Name Of Family Doctor: [facility] Provider Appointment Comment: [facility] Therapist Name of Therapist: BRYAN Therapist's Date of Therapist Appointment: 09/01/18 Time of Therapist Appointment: 3:00 p.m. Therapy Appointment Comment: [address] [place] [address] Plumbing Instructor Name of Plumbing Instructor: [facility] Phone Number for Plumbing Instructor: [phone] Case Management Appointment Comment: [address] Contact Information Discharge Discharge Address: [address] [place] [address], [place] [address], [place], [place] [address] CPT Code CPT Code 28743 (1) Depression Depression Type: unspecified Qualified Code(s): F32.9 - Major depressive disorder, single episode, unspecified
[2018-08-27] MEDS: SERTRALINE HCL 50 MG TABLET PO SCH (12:47)
[2018-08-28] MEDS: SERTRALINE HCL 50 MG TABLET PO SCH (09:49)
--- NOTE | 2018-08-28 14:30 | Psychiatric Progress Note ---
Date of Service August 28, 2018 Impression / Recommendations Impression Patient remains severely anxious with obsessive-compulsive and avoidant traits. She is preoccupied with notions of duty, responsibility, rules, and order. She may be reluctant to accept treatment at some level secondary to the perceived risk of failing to meet her duties. She is describing slight interval improvement but remains at high risk for self-harm if prematurely discharged. (1) Suicidal ideation: 08/26 - Admitted to a locked inpatient behavioral health unit, on q15 minute safety checks - Encourage medication initiation/adjustments as indicated - Encourage participation in group and recreational therapies - Gather collateral information from outpatient providers - Suggest family meeting to involve outpatient supports in safety planning - Arrange appropriate aftercare 08/27 -The patient tells me that she continues to have continued thoughts of suicide, but today does not feel that she has any suicidal intentat least in the hospital. She recognizes that she is facing many of the same stressors that helps precipitated the current admission when she leaves the hospital, and she also worries that these stressors may have become greater because she has not been able to do research while hospitalized. -We will again sertraline 25 mg today, and increase as tolerated to 50 mg tomorrow, and then titrate further as tolerated. -The patient is being encouraged to work assiduously on a safety plan. (2) Depression: 08/26 - Depression, NOS: Differential includes - adjustment disorder with mixed depressed mood and anxiety, major depressive disorder, dysthymic disorder, or other mood disorder - Reviewed recommendation for initiation of an SSRI, providing patient education information - Pt is agreeable to review, but would like additional time - planning to start medication in the morning if she remains agreeable 08/27 -I believe the patient's correct diagnosis is major depressive disorder, se tahmina, recurrent, without psychotic features. She has had at least one other episode of major depression, and certainly at this point meets criteria for major depression. -After reading about him analyzing the various material risks and anticipated benefits of various antidepressant medications she developed a rank ordered list of selective serotonin reuptake inhibitors that she would prefer to take. Sertraline was her second choice, but I convince the patient that I would recommend sertraline because of its demonstrated benefit for depression, anxiety, social phobia, and obsessive compulsive disorder. While I am not convinced the patient meets criteria for OCD, she certainly has a pattern of obsessively thinking and analyzing, to the degree that it interferes with her functioning in a number of spheres. -The plan is to begin sertraline 25 mg today, and increase to 50 mg tomorrow and then titrate further as tolerated. 08/28 - zoloft titration to continue as tolerated. will order vitals for pm as tachy this AM - pt was unwilling to start buspar (in effort to achieve some anxiolysis while waiting for ssri titration to become therapeutic) but was willing to try a single dose. as such, will order buspar 2.5mg po now x1 (3) Social anxiety disorder: 08/26 - Reported symptoms and level of anxiety meet criteria for social anxiety di sorder - SSRI as above - Assist with development of healthy and effective coping strategies. 08/27 -At least currently, the patient is almost painfully shy. Certainly, this reality may interfere with her ability to develop an adequate support network here in the community, and she seems reluctant to "burden" her family with her problems, even though she describes her family as being "close" and's "supportive." -We will be encouraging the patient to engage in the milieu, and work in group therapy and individual therapy to practice social interactions and better learning the value of obtaining support and encouragement for others. -We are beginning sertraline, as above. Hopefully this will also assist the patient in her effort to overcome social phobia. 08/28 - clearly this is not simply social anxiety. social needs actually appear low and likely more avoidant or perhaps even a little schizoid with severe obsessive compulsive traits evident. (4) Self-injurious behavior: 08/26 - Several superficial cuts to left upper arm and left wrist - none requiring suturing in the ED. Keep areas clean and dry, can order antibiotic ointment if necessary, observe healing process during admission - Assist patient with the development of healthy and effective coping strategies to discourage giving in to self-harm urges. 08/27 -Today, the patient indicates that she has significant shame associated with her intentional self-injurious behaviors (superficial self cutting). She acknowledges that self cutting helps block her obsessive thinking and relieves tension, but she also notes that this only afford her temporary relief and, furthermore, is contrary to her orthodoxy beliefs as a Alevism. Within this context, the patient says that she is committed to not engage in behavior, at least for the foreseeable future. Inventory Assets Strengths: intelligence, willingness for medications + therapy Needs: effective coping strategies, medications to target anxiety and depression, increased outpatient supports Risk Factors Assessment Male: No : Yes Do You Have Access To A Gun?: No Health Problems: No Mental Health Diagnoses: Yes Substance Use Disorders: No Previous Attempt: No Family History of Suicide: No Previous Psychiatric Hospitalization: No Hopelessness: Yes Smoker: No Protective Factors Assessment Yarsanism Beliefs: Yes : No Responsible for Young Children: No Employed: Yes Stable Relationships: No Supportive Family: Yes (but living in [place] ) Interval History Chief Complaint "It comes down to justice". Review of Systems Sleep Information Total Hours of Sleep: 7.5 Meal Information Percent Meal Consumed - Breakfast: 100 Percent Meal Consumed - Lunch: 60 Percent Meal Consumed - Dinner: 100 Subjective Subjective Patient was seen & assessed and interval progress reviewed with Treatment Team. Patient was started on Zoloft yesterday and reported mood as 5 out of 10 last evening and described as being out in the milieu a little more in the last 24 hours. Patient is an interesting interview. She presents as highly anxious. Quickly obsessive-compulsive personality traits, perfectionistic drives, high onus of responsibility comes through. This appears internally driven. She describes a lot of "should" thinking and seems quick to devalue herself when she is unable to meet goals. She acknowledges the catastrophic suicidal impulses that she has had and describes "justice" as result of perceived failing to meet her responsibility for eliel regarding her spiritual ideology. In exploring this she identifies strong introversion and likely elements of avoidance in addition to predilection towards goal-directed pragmatic thinking impact social connectedness. Regardless of origin, she perceives this as an area of personal failure and possibly magnified when she feels less efficacious and her goal- directed pursuits. Her self history is laden with overly detailed interwoven data points. She acknowledges emotional fatigue associated with the responsibility. She historically has utilized cutting as a way to drown out the mental chatter. She reports modest improvement in hopelessness in the last 24 hours now feeling more "frustrated." Physical Exam Psychiatric Orientation: oriented x 3 Apperance: + did not appear stated age (appears older than stated age. con servetively dressed and groomed) Eye Contact: + poor eye contact Motor Behavior: steady gait and station (posture is retreating) speech is overproductive but soft Affect: + depressed affect and + anxious affect "frustrated" Thought Process: + circumstantial thought process Thought Content: + preoccupation, + obsessions (obsessive) and + guilt Suicidal Thoughts: + reports suicidal thoughts Hallucinations: no auditory hallucinations and no visual hallucinations Cognition: recent memory grossly intact Estimated Intelligence: + above average estimated intelligence Insight: + limited insight Judgement: + limited judgement Vital Signs (Past 24 Hours) Last Vital Signs Temp 36.6 C 08/28/18 06:00 Pulse 120 H 08/28/18 06:00 Resp 16 08/28/18 06:00 BP 115/75 08/28/18 06:00 Pulse Ox 97 08/25/18 18:29 Results & Data Current Inpatient Medications Current Inpatient Medications: Current Inpatient Medications Acetaminophen (Tylenol) 650 mg PO Q4H PRN PRN Reason: Headache or Minor Fever Stop: 09/24/18 20:40 Al Hydrox/Mg Hydrox/Simethicone (Maalox) 30 ml PO Q4H PRN PRN Reason: GI Upset Stop: 09/24/18 20:40 Bismuth Subsalicylate (Kaopectate) 15 ml PO PRN PRN PRN Reason: Loose Stool Stop: 09/24/18 20:40 Buspirone HCl (Buspar) 2.5 mg PO NOW ONE Stop: 08/28/18 14:11 Hydroxyzine HCl (Vistaril) 50 mg PO HSZ PRN PRN Reason: Insomnia Stop: 09/24/18 20:40 Hydroxyzine HCl (Vistaril) 25 mg PO Q4H PRN PRN Reason: Anxiety Stop: 09/24/18 20:40 Magnesium Hydroxide (Milk Of Magnesia) 30 ml PO DAILY PRN PRN Reason: Constipation Stop: 09/24/18 20:40 Sertraline HCl (Zoloft) 25 mg PO QAM SHARRON Stop: 09/26/18 12:14 Last Admin: 08/28/18 09:49 Dose: 25 mg Documented by: Sodium Chloride ([place] Nasal) 1 - 2 sprays NA PRN PRN PRN Reason: Nasal Dryness/Congestion Stop: 09/24/18 20:40 Post Discharge Appointments Primary Care Physician Name Of Family Doctor: Camila Provider Appointment Comment: [facility] Therapist Name of Therapist: BRYAN Therapist's Date of Therapist Appointment: 09/01/18 Time of Therapist Appointment: 3:00 p.m. Therapy Appointment Comment: [address] [place] [address] [employer] Pump Operator Name of [employer]ia Pump Operator: [facility] Phone Number for [employer] Pump Operator: [phone] Case Management Appointment Comment: [facility] Contact Information Discharge Discharge Address: [address] [place] [address] CPT Code CPT Code 95539 (1) Depression Depression Type: unspecified Qualified Code(s): F32.9 - Major depressive disorder, single episode, unspecified
[2018-08-29] MEDS: SERTRALINE HCL 50 MG TABLET PO SCH (07:53)
--- NOTE | 2018-08-29 10:27 | Psychiatric Progress Note ---
Date of Service August 29, 2018 Impression / Recommendations Impression While anxiety remains severe, her affect is indeed a little brighter today. Yet unable to contract for safety outside of the hospital and requires continued treatment for provision of safety. (1) Suicidal ideation: 08/26 - Admitted to a locked inpatient behavioral health unit, on q15 minute safety checks - Encourage medication initiation/adjustments as indicated - Encourage participation in group and recreational therapies - Gather collateral information from outpatient providers - Suggest family meeting to involve outpatient supports in safety planning - Arrange appropriate aftercare 08/27 -The patient tells me that she continues to have continued thoughts of suicide, but today does not feel that she has any suicidal intentat least in the hospital. She recognizes that she is facing many of the same stressors that helps precipitated the current admission when she leaves the hospital, and she also worries that these stressors may have become greater because she has not been able to do research while hospitalized. -We will again sertraline 25 mg today, and increase as tolerated to 50 mg tomorrow, and then titrate further as tolerated. -The patient is being encouraged to work assiduously on a safety plan. 08/29 - Suicidal ideation appears unresolved (2) Depression: 08/26 - Depression, NOS: Differential includes - adjustment disorder with mixed depressed mood and anxiety, major depressive disorder, dysthymic disorder, or other mood disorder - Reviewed recommendation for initiation of an SSRI, providing patient education information - Pt is agreeable to review, but would like additional time - planning to start medication in the morning if she remains agreeable 08/27 -I believe the patient's correct diagnosis is major depressive disorder, severe, recurrent, without psychotic features. She has had at least one other episode of major depression, and certainly at this point meets criteria for major depression. -After reading about him analyzing the various material risks and anticipated benefits of various antidepressant medications she developed a rank ordered list of selective serotonin reuptake inhibitors that she would prefer to take. Sertraline was her second choice, but I convince the patient that I would recommend sertraline because of its demonstrated benefit for depression, anxiety, social phobia, and obsessive compulsive disorder. While I am not convinced the patient meets criteria for OCD, she certainly has a pattern of obsessively thinking and analyzing, to the degree that it interferes with her functioning in a number of spheres. -The plan is to begin sertraline 25 mg today, and increase to 50 mg tomorrow and then titrate further as tolerated. 08/28 - zoloft titration to continue as tolerated - pt was unwilling to start buspar (in effort to achieve some anxiolysis while waiting for ssri titration to become therapeutic) but was willing to try a single dose. as such, will order buspar 2.5mg po now x1 08/28 -We will increase Zoloft to 50 mg daily Thursday -We will increase vitals frequency to twice daily for a few days secondary to complaint of heart racing which appears worse in the mornings when she is hypotensive and tachycardic. Vitals yesterday afternoon normal. Denies cardiac history. Cannot rule out SSRI side effect (3) Social anxiety disorder: 08/26 - Reported symptoms and level of anxiety meet criteria for social anxiety disorder - SSRI as above - Assist with development of healthy and effective coping strategies. 08/27 -At least currently, the patient is almost painfully shy. Certainly, this reality may interfere with her ability to develop an adequate support network here in the community, and she seems reluctant to "burden" her family with her problems, even though she describes her family as being "close" and's "supportive." -We will be encouraging the patient to engage in the milieu, and work in group therapy and individual therapy to practice social interactions and better learning the value of obtaining support and encouragement for others. -We are beginning sertraline, as above. Hopefully this will also assist the patient in her effort to overcome social phobia. 08/28 - clearly this is not simply social anxiety. social needs actually appear low and likely more avoidant or perhaps even a little schizoid with severe obsessive compulsive traits evident. 08/29 -Increase Zoloft as above -Reviewed with patient that she does have access to as needed hydroxyzine for insomnia overnight -Patient unwilling to retry BuSpar secondary to sedation with first dose (4) Self-injurious behavior: 08/26 - Several superficial cuts to left upper arm and left wrist - none requiring suturing in the ED. Keep areas clean and dry, can order antibiotic ointment if necessary, observe healing process during admission - Assist patient with the development of healthy and effective coping strategies to discourage giving in to self-harm urges. 08/27 -Today, the patient indicates that she has significant shame associated with her intentional self-injurious behaviors (superficial self cutting). She acknowledges that self cutting helps block her obsessive thinking and relieves tension, but she also notes that this only afford her temporary relief and, furthermore, is contrary to her samaritan beliefs as a Jainism. Within this context, the patient says that she is committed to not engage in behavior, at least for the foreseeable future. Inventory Assets Strengths: intelligence, willingness for medications + therapy Needs: effective coping strategies, medications to target anxiety and depression, increased outpatient supports Risk Factors Assessment Male: No : Yes Do You Have Access To A Gun?: No Health Problems: No Mental Health Diagnoses: Yes Substance Use Disorders: No Previous Attempt: No Family History of Suicide: No Previous Psychiatric Hospitalization: No Hopelessness: Yes Smoker: No Protective Factors Assessment Jew Beliefs: Yes : No Responsible for Young Children: No Employed: Yes Stable Relationships: No Supportive Family: Yes (but living in [place] ) Interval History Chief Complaint "It made me feel foggy". Review of Systems Notes denies CP or SOB. Sleep Information Total Hours of Sleep: 6.75 Meal Information Percent Meal Consumed - Breakfast: 100 Percent Meal Consumed - Lunch: 60 Percent Meal Consumed - Dinner: 100 Subjective Subjective Patient was seen & assessed and interval progress reviewed with Treatment Team. Per staff patient complained of some waking overnight and early waking this morning. BuSpar trial with a single 2.5 mg dose yesterday seemingly associated with drowsiness. On interview patient reports several hours of feeling more foggy and sleepy. Interestingly she does describe "thinking less" following BuSpar dose. She remains highly anxious but appears slightly more relaxed on interview this morning. She describes her mood as "primarily foggy I guess." Reviewed low blood pressure and tachycardia again this morning. Interestingly her pulse was normal yesterday afternoon which may be related to time of day or possibly diminished anxiety following BuSpar administration. She remains unable to contract for safety outside of the hospital. Physical Exam Psychiatric Orientation: oriented x 3 and cooperative Apperance: appropriately groomed Eye Contact: + poor eye contact (but a little more direct this AM) Motor Behavior: no abnormal motor movements Speech: + abnormal rate/rhythm/volume of speech (remains soft but spontaneous) Affect: + anxious affect "foggy" Thought Process: + circumstantial thought process Thought Content: + preoccupation Suicidal Thoughts: denies suicidal plan and denies suicidal intent; + reports suicidal thoughts Cognition: recent memory grossly intact Estimated Intelligence: + above average estimated intelligence Insight: + limited insight Judgement: + limited judgement Vital Signs (Past 24 Hours) Last Vital Signs Temp 36.7 C 08/29/18 06:00 Pulse 125 H 08/29/18 06:00 Resp 16 08/29/18 06:00 BP 76/48 L 08/29/18 06:00 Pulse Ox 97 08/25/18 18:29 Cardiovascular Rate/Rhythm: regular rate, regular rhythm (radial pulse on palp 80 bmp and regular) and + tachycardic Results & Data Current Inpatient Medications Current Inpatient Medications: Current Inpatient Medications Acetaminophen (Tylenol) 650 mg PO Q4H PRN PRN Reason: Headache or Minor Fever Stop: 09/24/18 20:40 Al Hydrox/Mg Hydrox/Simethicone (Maalox) 30 ml PO Q4H PRN PRN Reason: GI Upset Stop: 09/24/18 20:40 Bismuth Subsalicylate (Kaopectate) 15 ml PO PRN PRN PRN Reason: Loose Stool Stop: 09/24/18 20:40 Hydroxyzine HCl (Vistaril) 50 mg PO HSZ PRN PRN Reason: Insomnia Stop: 09/24/18 20:40 Hydroxyzine HCl (Vistaril) 25 mg PO Q4H PRN PRN Reason: Anxiety Stop: 09/24/18 20:40 Magnesium Hydroxide (Milk Of Magnesia) 30 ml PO DAILY PRN PRN Reason: Constipation Stop: 09/24/18 20:40 Sertraline HCl (Zoloft) 50 mg PO QAM SHARRON Stop: 09/29/18 08:59 Sodium Chloride ([place] Nasal) 1 - 2 sprays NA PRN PRN PRN Reason: Nasal Dryness/Congestion Stop: 09/24/18 20:40 Post Discharge Appointments Primary Care Physician Name Of Family Doctor: Camila Provider Appointment Comment: [facility] Therapist Name of Therapist: BRYAN Therapist's Date of Therapist Appointment: 09/01/18 Time of Therapist Appointment: 3:00 p.m. Therapy Appointment Comment: [address] [place] [address] Mixer Operator Tablets Name of Mixer Operator Tablets: [facility] Phone Number for Mixer Operator Tablets: [phone] Case Management Appointment Comment: [address] [facility] Contact Information Discharge Discharge Address: [address] [place] [address], [place] [address], [place] [address] CPT Code CPT Code 58069 (1) Depression Depression Type: unspecified Qualified Code(s): F32.9 - Major depressive disorder, single episode, unspecified
[2018-08-30] MEDS: SERTRALINE HCL 50 MG TABLET PO SCH (08:25)
--- NOTE | 2018-08-30 13:58 | Psychiatric Progress Note ---
Date of Service August 30, 2018 Impression / Recommendations Impression Patient reports improvement in mood, and anxiety is predominantly focused towards transitioning back to school and anticipating meetings with her student success advisor. Patient's affect is brighter and she has been more interactive with peers on the unit. She does report recent resolution of suicidal thoughts; however, self-harm desire is ongoing. Given patient's high risk for harm to self if discharged prematurely, it would be beneficial to continue to observe mood and ensure that these improvements are consistent prior to discharge. (1) Suicidal ideation: 08/26 - Admitted to a locked inpatient behavioral health unit, on q15 minute safety checks - Encourage medication initiation/adjustments as indicated - Encourage participation in group and recreational therapies - Gather collateral information from outpatient providers - Suggest family meeting to involve outpatient supports in safety planning - Arrange appropriate aftercare 08/27 -The patient tells me that she continues to have continued thoughts of suicide, but today does not feel that she has any suicidal intentat least in the hospital. She recognizes that she is facing many of the same stressors that helps precipitated the current admission when she leaves the hospital, and she also worries that these stressors may have become greater because she has not been able to do research while hospitalized. -We will again sertraline 25 mg today, and increase as tolerated to 50 mg tomorrow, and then titrate further as tolerated. -The patient is being encouraged to work assiduously on a safety plan. 08/29 - Suicidal ideation appears unresolved 08/30 - Pt reports resolution of SI (2) Depression: 08/26 - Depression, NOS: Differential includes - adjustment disorder with mixed depressed mood and anxiety, major depressive disorder, dysthymic disorder, or other mood disorder - Reviewed recommendation for initiation of an SSRI, providing patient e ducation information - Pt is agreeable to review, but would like additional time - planning to start medication in the morning if she remains agreeable 08/27 -I believe the patient's correct diagnosis is major depressive disorder, severe, recurrent, without psychotic features. She has had at least one other episode of major depression, and certainly at this point meets criteria for major depression. -After reading about him analyzing the various material risks and anticipated benefits of various antidepressant medications she developed a rank ordered list of selective serotonin reuptake inhibitors that she would prefer to take. Sertraline was her second choice, but I convince the patient that I would recommend sertraline because of its demonstrated benefit for depression, anxiety, social phobia, and obsessive compulsive disorder. While I am not convinced the patient meets criteria for OCD, she certainly has a pattern of obsessively thinking and analyzing, to the degree that it interferes with her functioning in a number of spheres. -The plan is to begin sertraline 25 mg today, and increase to 50 mg tomorrow and then titrate further as tolerated. 08/28 - zoloft titration to continue as tolerated - pt was unwilling to start buspar (in effort to achieve some anxiolysis while waiting for ssri titration to become therapeutic) but was willing to try a single dose. as such, will order buspar 2.5mg po now x1 08/28 -We will increase Zoloft to 50 mg daily Thursday morning -We will increase vitals frequency to twice daily for a few days secondary to complaint of heart racing which appears worse in the mornings when she is hypotensive and tachycardic. Vitals yesterday afternoon normal. Denies cardiac history. Cannot rule out SSRI side effect 08/30 - Continue current medication regimen. Will defer ongoing titration of sertraline to her outpatient prescriber (3) Social anxiety disorder: 08/26 - Reported symptoms and level of anxiety meet criteria for social anxiety disorder - SSRI as above - Assist with development of healthy and effective coping strategies. 08/27 -At least currently, the patient is almost painfully shy. Certainly, this reality may interfere with her ability to develop an adequate support network here in the community, and she seems reluctant to "burden" her family with her problems, even though she describes her family as being "close" and's "supportive." -We will be encouraging the patient to engage in the milieu, and work in group therapy and individual therapy to practice social interactions and better learning the value of obtaining support and encouragement for others. -We are beginning sertraline, as above. Hopefully this will also assist the patient in her effort to overcome social phobia. 08/28 - clearly this is not simply social anxiety. social needs actually appear low and likely more avoidant or perhaps even a little schizoid with severe obsessive compulsive traits evident. 08/29 -Increase Zoloft as above -Reviewed with patient that she does have access to as needed hydroxyzine for insomnia overnight -Patient unwilling to retry BuSpar secondary to sedation with first dose (4) Self-injurious behavior: 08/26 - Several superficial cuts to left upper arm and left wrist - none requiring suturing in the ED. Keep areas clean and dry, can order antibiotic ointment if necessary, observe healing process during admission - Assist patient with the development of healthy and effective coping strategies to discourage giving in to self-harm urges. 08/27 -Today, the patient indicates that she has significant shame associated with her intentional self-injurious behaviors (superficial self cutting). She acknowledges that self cutting helps block her obsessive thinking and relieves tension, but she also notes that this only afford her temporary relief and, furthermore, is contrary to her baptism beliefs as a Mandaeism. Within this context, the patient says that she is committed to not engage in behavior, at least for the foreseeable future. 08/30 - Admits to ongoing urges to self-harm, continues to be receptive to assistance with developing alternative coping strategies Inventory Assets Strengths: intelligence, willingness for medications + therapy Needs: effective coping strategies, medications to target anxiety and depression, increased outpatient supports Risk Factors Assessment Male: No : Yes Do You Have Access To A Gun?: No Health Problems: No Mental Health Diagnoses: Yes Substance Use Disorders: No Previous Attempt: No Family History of Suicide: No Previous Psychiatric Hospitalization: No Hopelessness: Yes Smoker: No Protective Factors Assessment Yazdanism Beliefs: Yes : No Responsible for Young Children: No Employed: Yes Stable Relationships: No Supportive Family: Yes (but living in [place] ) Interval History Identifying Information LARISSA CORDOVA is a 23-year-old F who currently lives in [place], currently working on her Ph.D. Pt has no previously reported psychiatric history, and was admitted on 08/25/18 20:41 on a 201 voluntary commitment for suicidal thoughts. Pt was referred by [facility] for mental health evaluation. Information is gathered from ED documentation and the patient herself, and is considered to be reliable. Chief Complaint "Good. The weekend was good." Review of Systems Notes Constitutional: reports feeling "foggy" though not sedated Cardiovascular: denied Respiratory: denied Gastrointestinal: denied Neurological: denied Psychiatric: denies symptoms other than stated above Total of at least 10 systems reviewed, pertinent positives as above and in HPI. Sleep Information Total Hours of Sleep: 7.5 Meal Information Percent Meal Consumed - Breakfast: 100 Percent Meal Consumed - Lunch: 70 Percent Meal Consumed - Dinner: 100 Subjective Subjective Patient was seen & assessed and interval progress reviewed with Treatment Team. Staff reports the patient was agreeable to calling her parents yesterday, and a phone call turned into a family meeting involving mom, dad, and patient's 2 brothers. Family was supportive and reasonably concerned. Mother had offered to fly into [employer] to assist patient with transition back to school. Patient was seen today to assess progress since admission. Patient states she has been "good." She is agreeable with the plan for her mother to stay with her for a period of time. It was suggested by the mother that the patient come up with a list of things that she needs from her mother, but also things that may be "too much." Patient states she is a little concerned about her mother becoming too involved, but overall is happy to have her support. Patient states she is scheduled for a meeting with her student success advisor tomorrow morning, and will be interested in discharge prior to then if possible. Patient denies ongoing suicidal thoughts stating "I was thinking back through my suicide note, and realized it was no longer true." Patient states this is given her new motivation to continue with her schooling and with life. She does report ongoing urges to self-harm, is able to process with this provider some other coping strategies which may be beneficial for her in the future. Patient denies any other needs or concerns today. Physical Exam Psychiatric Orientation: alert, oriented x 3 and cooperative Apperance: appropriately dressed and appropriately groomed Eye Contact: good eye contact Motor Behavior: steady gait and station and no abnormal motor movements Speech: normal rate/rhythm/volume of speech (Soft tone) Affect: euthymic affect Mood: + anxious mood (Primarily regarding meeting with her student success advisor) "Good." Thought Process: goal directed thought process, linear/logical thought process and clear/coherent thought process Thought Content: reality based without delusions Suicidal Thoughts: denies suicidal thoughts, denies suicidal plan and denies suicidal intent Homicidal Thoughts: denies homicidal thoughts Hallucinations: no auditory hallucinations and no visual hallucinations Cognition: recent memory grossly intact, remote memory grossly intact, attention grossly intact and language grossly intact Estimated Intelligence: consistent with education level Insight: + fair insight Judgement: + fair judgement Vital Signs (Past 24 Hours) Last Vital Signs Temp 36.6 C 08/30/18 06:00 Pulse 105 H 08/30/18 06:00 Resp 16 08/30/18 06:00 BP 107/71 08/30/18 06:00 Pulse Ox 97 08/25/18 18:29 Results & Data Current Inpatient Medications Current Inpatient Medications: Current Inpatient Medications Acetaminophen (Tylenol) 650 mg PO Q4H PRN PRN Reason: Headache or Minor Fever Stop: 09/24/18 20:40 Al Hydrox/Mg Hydrox/Simethicone (Maalox) 30 ml PO Q4H PRN PRN Reason: GI Upset Stop: 09/24/18 20:40 Bismuth Subsalicylate (Kaopectate) 15 ml PO PRN PRN PRN Reason: Loose Stool Stop: 09/24/18 20:40 Hydroxyzine HCl (Vistaril) 50 mg PO HSZ PRN PRN Reason: Insomnia Stop: 09/24/18 20:40 Hydroxyzine HCl (Vistaril) 25 mg PO Q4H PRN PRN Reason: Anxiety Stop: 09/24/18 20:40 Magnesium Hydroxide (Milk Of Magnesia) 30 ml PO DAILY PRN PRN Reason: Constipation Stop: 09/24/18 20:40 Sertraline HCl (Zoloft) 50 mg PO QAM SHARRON Stop: 09/29/18 08:59 Last Admin: 08/30/18 08:25 Dose: 50 mg Documented by: Sodium Chloride (Startup Nasal) 1 - 2 sprays NA PRN PRN PRN Reason: Nasal Dryness/Congestion Stop: 09/24/18 20:40 Post Discharge Appointments Primary Care Physician Name Of Family Doctor: [facility] Provider Appointment Comment: [facility] Therapist Name of Therapist: BRYAN Therapist's Date of Therapist Appointment: 09/01/18 Time of Therapist Appointment: 3:00 p.m. Therapy Appointment Comment: [address] [place] [address] Geotechnical Engineer Name of Geotechnical Engineer: [facility] Phone Number for Geotechnical Engineer: [phone] Case Management Appointment Comment: [address] [place] [address] Contact Information Discharge Discharge Address: [address] [place] [address], [place], [place] [address] CPT Code CPT Code 16770 (1) Depression Depression Type: unspecified Qualified Code(s): F32.9 - Major depressive disorder, single episode, unspecified
[2018-08-31] MEDS: SERTRALINE HCL 50 MG TABLET PO SCH (07:29)
--- NOTE | 2018-08-31 09:30 | Discharge Summary ---
Date of Service August 31, 2018 History of Present Illness Keshia Dominguez (Katie) is a 23-year-old female admitted voluntarily for inpatient psychiatric treatment. 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 She was brought to the ED by police after referral from [facility]. Patient had presented for a scheduled therapy appointment, and had disclosed suicidal thoughts and self-harm behavior. Patient was assessed in the emergency department and inpatient psychiatric treatment was ultimately recommended. 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 Patient admits to this provider that she is concerned that she is not living up to others' expectations of her. 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 Patient admits the desire to end her life has been present for the last 2-3 weeks. She reports a specific plan - "severing a major artery was a consideration." Patient states that 08/22/2018 was a particularly difficult day; however, "I was able to push myself to go to work this week, and make sure I got to that appointment at [facility] yesterday." Patient admits to significant difficulty with interpersonal relationships. She states she is always had difficulty interacting with others in social settings, and has trouble making friends. Patient states "communication is hard for me, it is extravagantly exhausting." The patient describes herself as "reclusive." Patient reports a great deal of anxiety when it comes to academic presentations, interacting with others and lab, and simply being the presence of other individu als. Patient states, "humans are social creatures by nature and that social interaction is so difficult for me." Patient states that there are times that she avoids leaving her apartment, states she figured out when the grocery store is most quiet, and generally her only social interaction is "Mass on Sundays." Patient does not report a clear history of panic attacks in the past. She does report depressive symptoms of low mood, reporting more bad days than good days during the week. She admits to daily crying spells generally lasting 2 hours, increased desire to retreat to bed, decreased appetite, low energy, anhedonia, difficulty concentrating, hopelessness, and recent suicidal ideation. Patient states, "part of me feels that the major chore to keep living, but the other part of me wants to fight to stay and keep going." Patient denies any previous medication trials to target her anxiety or mood. She does admit to a brief period of counseling just prior to graduation from her undergraduate studies, stating the primary focus of this counseling was on her self-harm behavior which she reports was infrequent at the time. Patient does admit that she would be interested in considering medications, and is willing to pursue outpatient therapy as well. Pt denies HI, A/V hallucinations, paranoia, florencio/hypomania, other symptoms more suggestive of a bipolar presentation, OCD, PTSD, eating disorder, and other specific psychiatric symptoms. Physical Exam Psychiatric Orientation: alert, oriented x 3 and cooperative Apperance: appropriately dressed and appropriately groomed Eye Contact: good eye contact Motor Behavior: steady gait and station and no abnormal motor movements Speech: normal rate/rhythm/volume of speech (Soft tone) Affect: + anxious affect (Though lessened from admission) "Okay, a little anxious. It feels good to have a plan." Thought Process: goal directed thought process, linear/logical thought process and clear/coherent thought process Thought Content: reality based without delusions Suicidal Thoughts: denies suicidal thoughts, denies suicidal plan and denies suicidal intent Homicidal Thoughts: denies homicidal thoughts Hallucinations: no auditory hallucinations and no visual hallucinations Cognition: recent memory grossly intact, remote memory grossly intact, attention grossly intact and language grossly intact Estimated Intelligence: consistent with education level Insight: good insight Judgement: good judgement Vital Signs (Past 24 Hours) Last Vital Signs Temp 36.7 C 08/31/18 06:56 Pulse 74 08/31/18 06:57 Resp 18 08/31/18 06:56 BP 106/71 08/31/18 06:57 Pulse Ox 97 08/25/18 18:29 Principal Diagnosis Generalized/Social anxiety disorder; Depression - differential of adjustment disorder with mixed depressed mood and anxiety or major depressive disorder Psychiatric Data 23-year-old female admitted voluntarily for inpatient psychiatric treatment on 08/25/18 due to worsening depression, increased situational stressors, and the development of active suicidal thoughts. Prior to admission, patient had reported consideration to "sever a major artery" or "use a poorly designed oven." Patient was referred for mental health evaluation after an initial evaluation at [facility]. During initial assessment, patient reported symptoms of depression, anxiety, and displayed some obsessive traits. Patient was willing to consider psychiatric medications to assist with the symptoms. Patient was started on sertraline which was titrated to a dose of 50 mg over the course of her hospitalization. Patient has tolerated medication changes up to that point. Patient was an active participant in group and recreational therapies, and was able to process through her situational stressors with counselors and other staff. Patient was initially unwilling to involve her parents as she did not want to worry them. She was eventually agreeable to having a phone meeting with them which was supportive and encouraging. Discharge plan was for continuation of medications, establishing patient with an outpatient therapist, and having patient's mother secure sharp objects or other weapons in her apartment. Patient's mother is planning to stay with the patient in order to provide support while patient transitions back to the outpatient setting. Patient has been set up with student care and advocacy, and was able to have contact with her academic affairs manager during her admission. At time of discharge patient is denying ongoing suicidality. She reports that thoughts of self-harm have been reduced to the point of being able to use healthier coping strategies to manage anxiety and other emotional stress. Patient's mood is improved and she is able to contract for safety outside of the hospital setting. Patient completed a safety plan during her hospitalization, which was personally reviewed by this provider. At time of discharge patient is future oriented and has participated in discharge and safety planning. Patient is requesting discharge to home after her mother arrives in town. At this time patient seems appropriate for discharge to the outpatient setting with ongoing psychiatric treatment. Day of Discharge Assessment Patient's case was reviewed and discussed with nursing. Staff states the patient has been doing well and continues to be interactive with supportive of peers in the milieu. She is continued to deny suicidal thoughts, and is interested in discharge today after her mother arrives in [facility]. Patient was seen today to assess readiness for discharge. Patient states she is doing well and is happy that there is a clear plan for her transition back to the outpatient setting. Patient states her mother will be arriving to [facility] later this evening and will come to the hospital and pick her up. Patient is hoping to attend lab meetings tomorrow morning, but does not plan on putting in a full day at work. She has rescheduled her appointment with her academic affairs manager for tomorrow afternoon, which allows her more time to consider what she would like to discuss. Patient denies ongoing suicidal thoughts and reports more hopefulness. She states that she has not had thoughts to self-harm today, but shares with this provider several strategies for coping with emotional stress in a healthy way that she would like to adopt on discharge. Patient is able to contract for safety, and is appreciative that her mother will be there to provide her support when she returns to her apartment. Patient denies any other needs or concerns at this time, and is requesting discharge this afternoon/evening. Patient is future oriented, motivated to return to work, more hopeful and optimistic, and appears to be at reduced risk of harm. Based on review of the patient's case and current presentation, the patient seems appropriate for discharge to home with her mother. We are recommending ongoing psychiatric treatment on an outpatient basis with providers established during this hospitalization. Patient is agreeable with plan outlined above. ROS: Constitutional: denied Cardiovascular: denied Respiratory: denied Gastrointestinal: denied Neurological: denied Psychiatric: denies symptoms other than stated above Total of at least 10 systems reviewed, pertinent positives as above and in HPI. Transition of Care Transition Of Care Record: was reviewed with the patient Advance Directives Advance Directives Information Provided: Yes Advance Directives: No Mental Health Advance Directive: No Advance Directives on File: No Living Will: No Power of Wire Hanger: No Advance Directives Reason:: Declines as Mental Health Visit. Risk Factors Assessment Presenting risk factors reviewed on discharge. Precipitating stressors mitigated by: admission for inpatient psychiatric observation and treatment, initiation of medications to target presenting symptoms, attendance of therapeutic treatment groups, development of healthy and effective coping strategies, confirmation of mother securing razor/knifes on discharge, and education on diagnoses. Pt has demonstrated improvement in condition with regard to improvement in mood, reduction of anxiety, ability to communicate thoughts and feelings to family supports, willingness for a family meeting to discuss stressors and needs, and resolution of active SI. Pt is requesting discharge and is no longer considered to be at acute risk of harm to herself or others. They will be discharged with recommendation for ongoing outpatient psychiatric treatment. Self-injurious thoughts are ongoing, but lessened. Pt was able to focus on alternative coping strategies and is able to list several she will be using on discharge to previous self-harm. These urges, in combination with stressors unable to be mitigated on admission put patient at a somewhat higher risk of harm to self, but this does not appear to be an acute risks or amenable to ongoing psychiatric hospitalization. Mother to stay with patient on discharge to provide support. Male: No : Yes Do You Have Access To A Gun?: No Health Problems: No Mental Health Diagnoses: Yes Substance Use Disorders: No Previous Attempt: No Family History of Suicide: No Previous Psychiatric Hospitalization: No Hopelessness: Yes Smoker: No Protective Factors Assessment Taoism Beliefs: Yes : No Responsible for Young Children: No Employed: Yes Stable Relationships: No Supportive Family: Yes (but living in [place] ) Tobacco Cessation at Discharge Tobacco Cessation Medication Prescribed at Discharge: Not Applicable/Non-Smoker Total Time Total Time Spent: Greater Than 30 Minutes Total Time Includes: Examination of the patient, Discharge Planning, Medication Reconciliation and Communication with other providers Discharge Data Consultations 08/25/18 21:13 ED Decision to Admit Stat Lab Results 08/25/18 08/25/18 08/25/18 17:44 17:44 17:44 WBC 8.62 RBC 4.55 Hgb 14.5 Hct 42.1 MCV 92.5 MCH 31.9 MCHC 34.4 RDW Std Deviation 43.6 RDW Coeff of Lesly 12.9 Plt Count 169 MPV 9.7 Immature Gran % (Auto) 0.1 Neut % (Auto) 68.2 Lymph % (Auto) 21.9 Alpine % (Auto) 8.4 Eos % (Auto) 1.2 Baso % (Auto) 0.2 Immature Gran # (Auto) 0.01 Neut # (Auto) 5.88 Lymph # (Auto) 1.89 Alpine # (Auto) 0.72 H Eos # (Auto) 0.10 Baso # (Auto) 0.02 Sodium 137 Potassium 3.4 L Chloride 105 Carbon Dioxide 25 Anion Gap 7.0 BUN 8 Creatinine 0.77 Est Cr Clr Drug Dosing 91.5 Est GFR ( Amer) 126.1 Est GFR (Non-Af Amer) 108.8 BUN/Creatinine Ratio 9.9 L Glucose 78 Calcium 9.1 Total Bilirubin 0.6 AST 17 ALT 17 Alkaline Phosphatase 63 Total Protein 7.8 Albumin 4.2 Globulin 3.6 Albumin/Globulin Ratio 1.2 TSH 1.540 Urine Color Urine Appearance Urine pH Ur Specific [place] Urine Protein Urine Glucose (UA) Urine Ketones Urine Blood Urine Nitrite Urine Bilirubin Urine Urobilinogen Ur Leukocyte Esterase Urine WBC (Auto) Urine RBC (Auto) U Hyaline Cast (Auto) U Epithel Cells (Auto) Urine Bacteria (Auto) Urine Test Salicylates < 1.7 L Urine Opiates Screen Ur Methadone, Qual Acetaminophen < 2 L Urine Barbiturates Ur Phencyclidine (PCP) U Amphetamin/Meth Scrn MDMA (Ecstasy) Screen U Benzodiazepines Scrn Ur Cocaine Metabolite U Marijuana (THC) Screen Ethyl Alcohol mg/dL 08/25/18 08/25/18 08/25/18 17:44 18:50 18:50 WBC RBC Hgb Hct MCV MCH MCHC RDW Std Deviation RDW Coeff of Lesly Plt Count MPV Immature Gran % (Auto) Neut % (Auto) Lymph % (Auto) Alpine % (Auto) Eos % (Auto) Baso % (Auto) Immature Gran # (Auto) Neut # (Auto) Lymph # (Auto) Alpine # (Auto) Eos # (Auto) Baso # (Auto) Sodium Potassium Chloride Carbon Dioxide Anion Gap BUN Creatinine Est Cr Clr Drug Dosing Est GFR ( Amer) Est GFR (Non-Af Amer) BUN/Creatinine Ratio Glucose Calcium Total Bilirubin AST ALT Alkaline Phosphatase Total Protein Albumin Globulin Albumin/Globulin Ratio TSH Urine Color Urine Appearance Urine pH Ur Specific [place] Urine Protein Urine Glucose (UA) Urine Ketones Urine Blood Urine Nitrite Urine Bilirubin Urine Urobilinogen Ur Leukocyte Esterase Urine WBC (Auto) Urine RBC (Auto) U Hyaline Cast (Auto) U Epithel Cells (Auto) Urine Bacteria (Auto) Urine Test Negative Salicylates Urine Opiates Screen Neg Ur Methadone, Qual Neg Acetaminophen Urine Barbiturates Neg Ur Phencyclidine (PCP) Neg U Amphetamin/Meth Scrn Neg MDMA (Ecstasy) Screen Neg U Benzodiazepines Scrn Neg Ur Cocaine Metabolite Neg U Marijuana (THC) Screen Neg Ethyl Alcohol mg/dL < 3.0 08/25/18 18:50 WBC RBC Hgb Hct MCV MCH MCHC RDW Std Deviation RDW Coeff of Lesly Plt Count MPV Immature Gran % (Auto) Neut % (Auto) Lymph % (Auto) Alpine % (Auto) Eos % (Auto) Baso % (Auto) Immature Gran # (Auto) Neut # (Auto) Lymph # (Auto) Alpine # (Auto) Eos # (Auto) Baso # (Auto) Sodium Potassium Chloride Carbon Dioxide Anion Gap BUN Creatinine Est Cr Clr Drug Dosing Est GFR ( Amer) Est GFR (Non-Af Amer) BUN/Creatinine Ratio Glucose Calcium Total Bilirubin AST ALT Alkaline Phosphatase Total Protein Albumin Globulin Albumin/Globulin Ratio TSH Urine Color Yellow Urine Appearance Cloudy A Urine pH 8.5 H Ur Specific [place] 1.011 Urine Protein Negative Urine Glucose (UA) Negative Urine Ketones 1+ H Urine Blood Negative Urine Nitrite Negative Urine Bilirubin Negative Urine Urobilinogen Negative Ur Leukocyte Esterase Negative Urine WBC (Auto) 1-5 Urine RBC (Auto) 5-10 H U Hyaline Cast (Auto) 0 U Epithel Cells (Auto) 10-20 H Urine Bacteria (Auto) Negative Urine Test Salicylates Urine Opiates Screen Ur Methadone, Qual Acetaminophen Urine Barbiturates Ur Phencyclidine (PCP) U Amphetamin/Meth Scrn MDMA (Ecstasy) Screen U Benzodiazepines Scrn Ur Cocaine Metabolite U Marijuana (THC) Screen Ethyl Alcohol mg/dL Hospital Course (1) Suicidal ideation: 08/26 - Admitted to a locked inpatient behavioral health unit, on q15 minute safety checks - Encourage medication initiation/adjustments as indicated - Encourage participation in group and recreational therapies - Gather collateral information from outpatient providers - Suggest family meeting to involve outpatient supports in safety planning - Arrange appropriate aftercare 08/27 -The patient tells me that she continues to have continued thoughts of suicide, but today does not feel that she has any suicidal intentat least in the hospital. She recognizes that she is facing many of the same stressors that helps precipitated the current admission when she leaves the hospital, and she also worries that these stressors may have become greater because she has not been able to do research while hospitalized. -We will again sertraline 25 mg today, and increase as tolerated to 50 mg tomorrow, and then titrate further as tolerated. -The patient is being encouraged to work assiduously on a safety plan. 08/29 - Suicidal ideation appears unresolved 08/30 - Pt reports resolution of SI (2) Depression: 08/26 - Depression, NOS: Differential includes - adjustment disorder with mixed depressed mood and anxiety, major depressive disorder, dysthymic disorder, or other mood disorder - Reviewed recommendation for initiation of an SSRI, providing patient education information - Pt is agreeable to review, but would like additional time - planning to start medication in the morning if she remains agreeable 08/27 -I believe the patient's correct diagnosis is major depressive disorder, severe, recurrent, without psychotic features. She has had at least one other episode of major depression, and certainly at this point meets criteria for major depression. -After reading about him analyzing the various material risks and anticipated benefits of various antidepressant medications she developed a rank ordered list of selective serotonin reuptake inhibitors that she would prefer to take. Sertraline was her second choice, but I convince the patient that I would recommend sertraline because of its demonstrated benefit for depression, anxiety, social phobia, and obsessive compulsive disorder. While I am not convinced the patient meets criteria for OCD, she certainly has a pattern of o bsessively thinking and analyzing, to the degree that it interferes with her functioning in a number of spheres. -The plan is to begin sertraline 25 mg today, and increase to 50 mg tomorrow and then titrate further as tolerated. 08/28 - zoloft titration to continue as tolerated - pt was unwilling to start buspar (in effort to achieve some anxiolysis while waiting for ssri titration to become therapeutic) but was willing to try a single dose. as such, will order buspar 2.5mg po now x1 08/28 -We will increase Zoloft to 50 mg daily Thursday morning -We will increase vitals frequency to twice daily for a few days secondary to complaint of heart racing which appears worse in the mornings when she is hypotensive and tachycardic. Vitals yesterday afternoon normal. Denies cardiac history. Cannot rule out SSRI side effect 08/30 - Continue current medication regimen. Will defer ongoing titration of sertraline to her outpatient prescriber (3) Social anxiety disorder: 08/26 - Reported symptoms and level of anxiety meet criteria for social anxiety disorder - SSRI as above - Assist with development of healthy and effective coping strategies. 08/27 -At least currently, the patient is almost painfully shy. Certainly, this reality may interfere with her ability to develop an adequate support network here in the community, and she seems reluctant to "burden" her family with her problems, even though she describes her family as being "close" and's "supportive." -We will be encouraging the patient to engage in the milieu, and work in g roup therapy and individual therapy to practice social interactions and better learning the value of obtaining support and encouragement for others. -We are beginning sertraline, as above. Hopefully this will also assist the patient in her effort to overcome social phobia. 08/28 - clearly this is not simply social anxiety. social needs actually appear low and likely more avoidant or perhaps even a little schizoid with severe obsessive compulsive traits evident. 08/29 -Increase Zoloft as above -Reviewed with patient that she does have access to as needed hydroxyzine for insomnia overnight -Patient unwilling to retry BuSpar secondary to sedation with first dose (4) Self-injurious behavior: 08/26 - Several superficial cuts to left upper arm and left wrist - none requiring suturing in the ED. Keep areas clean and dry, can order antibiotic ointment if necessary, observe healing process during admission - Assist patient with the development of healthy and effective coping strategies to discourage giving in to self-harm urges. 08/27 -Today, the patient indicates that she has significant shame associated with her intentional self-injurious behaviors (superficial self cutting). She acknowledges that self cutting helps block her obsessive thinking and relieves tension, but she also notes that this only afford her temporary relief and, f yulianalamin, is contrary to her yarsani beliefs as a Judaism. Within this context, the patient says that she is committed to not engage in behavior, at least for the foreseeable future. 08/30 - Admits to ongoing urges to self-harm, continues to be receptive to assistance with developing alternative coping strategies Post Discharge Appointments Primary Care Physician Name Of Family Doctor: Camila Provider Appointment Comment: [facility] Psychiatrist Name of Psychiatrist: Dr. Gates Psychiatrist's Date of Appointment with Psychiatrist: 09/09/18 Time of Appointment with Psychiatrist: 2:30pm Therapist Name of Therapist: Shanna Oscar [facility] Therapist's Date of Therapist Appointment: 09/02/18 Time of Therapist Appointment: 10am Therapy Appointment Comment: [facility] Chief Optometry Service Name of Chief Optometry Service: Student Care and Advocacy Phone Number for Chief Optometry Service: [phone] Date of Appointment with Chief Optometry Service: 09/01/18 Time of Appointment with Chief Optometry Service: 1pm Case Management Appointment Comment: [address] Smoking Cessation Counseling Tobacco Cessation Medication Prescribed at Discharge: Not Applicable/Non-Smoker Contact Information Discharge Discharge Address: [address] [place] [address], [place] [address], [place] [address] Discharge Plan Discharge Items Patient Disposition: Home - Self-Care Reason For Visit: MDD Discharge Diagnosis: Depression Condition: Good Discharge Goals: Decrease discomfort, Improve disease control, Improve function, Increase independence, Learn about illness and Therapeutic intervention Activity: Resume your previous activity Non-emergency contact: Primary Care Provider, Psychiatrist and Therapist Call non-emergency contact if: you have any medication questions and your symptoms worsen Follow-up/Referrals: PCP,NO [Primary Care Provider] - Diet: Regular Addtl Provider Instructions: SPECIAL CARE INSTRUCTIONS: 1. Follow through with your scheduled aftercare appointments. If unable to keep an appointment, please call to reschedule. 2. Take your medication only as prescribed. Medication should not be changed or stopped without the approval of your doctor. In the event of worsening symptoms or concerns about side effects, contact your doctor immediately. 3. Utilize new healthy coping skills, anger management skills, and stress management skills learned during your hospitalization. Journal feelings and process them with a support person. Identify stressors or situations that may result in relapse, deterioration or inappropriate behaviors and develop a plan to deal with those issues. 4. If your coping skills are ineffective and you are in crisis, contact your outpatient providers for direction. If unable to reach your providers, please call the CAN HELP LINE AT or go to the closest Emergency Room. 5. Avoid alcohol and un-prescribed drugs. 6. You have been provided with the Mental Health Advance Directives Pamphlet for your review. AFTERCARE APPOINTMENTS: * Please call your insurance company prior to your scheduled appointment to confirm your aftercare providers are covered. Take your insurance information to your appointments. WHO TO CALL AND WHEN: Medical Emergencies: For questions or emergencies related to your hospital stay, please contact the Inpatient Behavioral Health Unit at [phone]. A billiard table assembler is on-call 03/11 for the Behavioral Health Unit for emergencies At any time you feel your situation is an emergency, you may also call 911 immediately. Your Doctors Instructions noted above were prepared by provider Tania Aguirre PA-C. Prescriptions: New sertraline 50 mg Tablet 50 mg PO QAM 30 Days Qty: 30 RF: 0 No Action No Known Home Medications RF: 0 Stand-Alone Forms: [facility] Discharge Orders: Discharge Order (Routine); Ordered 08/31/18 Ordered By: Tania Aguirre Admission Data Admit Date/Time: 08/25/18 20:41 Attending Provider: Merary Das Admit Provider: Fiona New Primary Care Provider: PCP,NO Other Providers: Fiona New Service: Psychiatry Other Interventions: PSY Interdisciplinary Discharge Planning Last Done: 08/30/18 15:32 Pending Studies at Discharge: No
[2018-08-31] MEDS ORDERED: SERTRALINE HCL 50 MG TABLET PO ONE (09:45)
[2018-09-01] MEDS ORDERED: SERTRALINE HCL 50 MG TABLET PO SCH (09:00)
== END 2018-08-31 17:12 | disposition home or self-care (01) | DRG 885 ==
LOC: ED 16:28 → 3S 20:41